=== PATIENT | male | born 1950 | race Caucasian/White ===

== ENCOUNTER 2022-03-19 22:06 | Outpatient (REF) | payer OTHER, SELFPAY ==
[2022-03-20 00:22] LABS: Appearance Urine Clear (Clear); Bilirubin Urine Negative (Negative); Blood Urine Negative (Negative); Color Urine Yellow (Yellow); Glucose Urine Negative (Negative); Ketones Urine Negative (Negative); Leukocyte Esterase Urine Negative (Negative); Nitrite Urine Negative (Negative); Protein Urine Negative (Negative); Specific Gravity Urine 1.025 (1.000-1.030); Urobilinogen Urine 0.2 (0.2-1.0); pH Urine 5.5 (5.0-8.5)
== END 2022-03-19 22:07 | disposition home or self-care (01) ==
LOC: NPINS 22:06
DX: R31.29 Other microscopic hematuria (principal)
CPT/HCPCS: 81003

== ENCOUNTER 2022-05-06 08:56 | Outpatient (CLI) | payer OTHER, SELFPAY | END 2022-05-06 08:57 | disposition home or self-care (01) | LOC: NFLDREF 05-07 14:35 | PROVIDERS: Visit Provider Emergency Medicine | DX: Z00.00 Encounter for general adult medical examination without abnormal findings (principal); E78.5 Hyperlipidemia, unspecified; I10 Essential (primary) hypertension; N40.0 Benign prostatic hyperplasia without lower urinary tract symptoms; N18.30 Chronic kidney disease, stage 3 unspecified; R73.01 Impaired fasting glucose; Z12.5 Encounter for screening for malignant neoplasm of prostate | CPT/HCPCS: 80053; 80061; 84153 ==

== ENCOUNTER 2022-05-09 15:31 | Outpatient (CLI) | payer OTHER, SELFPAY | END 2022-05-09 15:32 | disposition home or self-care (01) | PROVIDERS: Visit Provider Emergency Medicine | DX: Z00.00 Encounter for general adult medical examination without abnormal findings (principal); R73.03 Prediabetes; R73.01 Impaired fasting glucose; E78.5 Hyperlipidemia, unspecified; G25.81 Restless legs syndrome | CPT/HCPCS: 82728 ==

== ENCOUNTER 2023-05-13 15:33 | Outpatient (CLI) | payer OTHER, SELFPAY | END 2023-05-13 15:34 | disposition home or self-care (01) | PROVIDERS: PCP Emergency Medicine; Visit Provider Emergency Medicine | DX: Z00.00 Encounter for general adult medical examination without abnormal findings (principal); I10 Essential (primary) hypertension; E78.5 Hyperlipidemia, unspecified; R73.03 Prediabetes; N18.30 Chronic kidney disease, stage 3 unspecified; G25.81 Restless legs syndrome; Z12.5 Encounter for screening for malignant neoplasm of prostate | CPT/HCPCS: 80053; 80061; 82728; G0103 ==

== ENCOUNTER 2024-05-06 10:37 | Outpatient (CLI) | payer OTHER, SELFPAY | END 2024-05-06 10:38 | disposition home or self-care (01) | PROVIDERS: PCP Emergency Medicine; Visit Provider Emergency Medicine | DX: E78.5 Hyperlipidemia, unspecified (principal); R73.03 Prediabetes; I10 Essential (primary) hypertension; R20.2 Paresthesia of skin; R82.90 Unspecified abnormal findings in urine; Z13.29 Encounter for screening for other suspected endocrine disorder; Z12.5 Encounter for screening for malignant neoplasm of prostate | CPT/HCPCS: 80048; 80061; 82607; 84443; 87086; G0103 ==

== ENCOUNTER 2024-06-15 08:05 | Outpatient (CLI) | payer OTHER, SELFPAY | END 2024-06-15 08:06 | disposition home or self-care (01) | LOC: NFLDREF 06-17 01:33 | PROVIDERS: PCP Emergency Medicine; Referring Provider Emergency Medicine; Visit Provider Emergency Medicine | DX: I10 Essential (primary) hypertension (principal); N40.0 Benign prostatic hyperplasia without lower urinary tract symptoms | CPT/HCPCS: 80048; 87086 ==

== ENCOUNTER 2024-07-21 13:36 | Outpatient (CLI) | payer OTHER, SELFPAY | END 2024-07-21 13:37 | disposition home or self-care (01) | PROVIDERS: PCP Emergency Medicine; Visit Provider Emergency Medicine | DX: I10 Essential (primary) hypertension (principal); R31.9 Hematuria, unspecified | CPT/HCPCS: 80048; 87086 ==